=== PATIENT | male | born 1995 | race African-American/Black ===

== ENCOUNTER 2020-02-17 14:41 | Emergency (ER) | payer OTHER, SELFPAY ==
[2020-02-17 14:56] VITALS: BP 113/70; PULSE 83; RESP 14; TEMP 36.7; O2SAT 98; BMI 21.5
--- NOTE | 2020-02-17 15:17 | ED.EXTPRO ---
HPI - Extremity Problem General Chief complaint: Extremity Injury, Upper Stated complaint: Hand pain Time Seen by Provider: 02/17/20 14:50 Source: patient Mode of arrival: ambulatory Limitations: no limitations History of Present Illness HPI Narrative: Patient was on a swing yesterday and when he was getting off he pinned his hand between two metal bars. Now having pain and swelling over the base of the thumb. MD Complaint: extremity pain and extremity swelling Onset (ago): day(s) (1 day ) Pain Consistency: constant Location: right Quality: sharp Radiation: none Relieving factors: cold therapy and immobilization Exacerbating factors: range of motion, exertion and palpation Associated symptoms: denies other symptoms Related Data Allergies Allergy/AdvReac Type Severity Reaction Status Date / Time No Known Allergies Allergy Verified 02/17/20 14:55 Review of Systems Review of Systems: Yes all other systems are reviewed and are negative Constitutional: Constitutional: Reports no additional constitutional complaints, Denies body ache(s), Denies chills, Denies fever(s), Denies headache(s) and Denies weakness Eyes: Eyes: Reports no additional eye complaints and Denies change in vision ENT: Reports system reviewed and no additional complaints, except as documented, Denies dizziness, Denies headache(s), Denies nasal congestion, Denies nasal discharge and Denies neck pain Cardiovascular: Cardiovascular: Reports no additional cardiovascular complaints, Denies chest pain, Denies leg edema and Denies dyspnea Respiratory: Respiratory: Reports no additional respiratory complaints, Denies cough and Denies dyspnea Gastrointestinal: Gastrointestinal: Reports no additional gastrointestinal complaints, Denies abdominal pain, Denies diarrhea, Denies nausea and Denies vomiting Genitourinary: Genitourinary: Denies urinary incontinence Musculoskeletal: Musculoskeletal: Reports no additional musculoskeletal complaints, Denies back pain, Reports arthralgias, Reports joint swelling, Denies neck pain, Denies numbness and Denies tingling Integumentary/Breasts: Skin/Breast: Reports system reviewed and no additional complaints, except as docu and Denies rash Neurologic: Reports system reviewed and no additional complaints, except as documented, Denies Abnormal speech present, Denies dizziness, Denies headache(s), Denies numbness, Denies tingling and Denies weakness FORMERLY [facility], 1928–1983 Past Medical History Attestation statement: The following information was validated with the patient. Source: obtained from family and nursing notes reviewed Medical History Asthma Social History Social History Alcohol intake: never Smoking Status: Former smoker Use of substances other than those prescribed or required for medical reasons: No Advance Directives: No Advance Directives Information Provided: Yes Physical Exam Vital Signs: Vital Signs: Vital Signs Temp Pulse Resp BP Pulse Ox 02/17/20 14:56 98.1 F 83 14 113/70 98 Body Mass Index 21.5 Const: General: cooperative, healthy appearing, comfortable and no acute distress Orientation/consciousness: patient oriented x3 Limitations: no limitations HENMT: Head: Yes normal to inspection Ears: hearing grossly normal bilaterally General nose exam: Normal external nose present Face and sinus: Yes normal facial exam Mouth: Normal oral and palatal mucosa present Throat: Yes posterior oropharynx normal Eyes: General: appearance normal, both eyes and all related structures Pupils: Equal, round and reactive pupils present Neck: Neck: Yes normal visual inspection Chest: Chest palpation & inspection: normal inspection of the chest Resp: Effort & Inspection: normal respiratory effort Auscultation: clear to auscultation bilaterally Cardio: Rate: regular rate Rhythm: regular rhythm Peripheral pulses: Peripheral pulses 2+ throughout GI: Inspection: Yes normal to inspection Palpation (GI): Soft to palpation and nontender Auscultation: normal bowel sounds Back/Spine/Pelvis: Thoracic/Lumbar Spine: thoracic and lumbar spine normal to inspection Skin: General skin exam: no rashes or lesions noted Neuro: General: patient oriented x3, no focal motor deficits and normal sensation to monofilament Cranial nerves: Yes Equal, round and reactive pupils present Cognition (Neuro): normal cognition Speech: No Abnormal speech present Gait exam (Neuro): Normal gait present Motor exam (neuro): 5/5 motor strength present throughout Extrem: General: Yes normal to inspection Right upper extremity: normal to inspection and Extremity exam: right hand Details: normal capillary refill, neuromotor exam normal, neurosensory exam normal, tendon exam normal, tenderness (over the base of the thumb with ecchymosis and swelling. FROM) Location: of the thumb, normal ROM of fingers and ecchymosis; no unusual warmth and no swelling Course Course Course Narrative: Will check imaging. 1550-Xrays negative. Likely sprain vs contusion. Placed in velcro thumb spica splint. Reviewed worrisome signs and symptoms when to return to the emergency department. Comfortable discharge home. MDM - Extremity (Nontraumatic) Imaging Data hand/wrist xray: Attestation: I personally reviewed and interpreted this imaging study as follows: Radiologist's impression: EXAMINATION: CR X-RAY HAND AND WRIST RIGHT CLINICAL INFORMATION: Right hand/wrist pain. COMPARISON: None TECHNIQUE: 4 views of the right hand and wrist are obtained. FINDINGS: There is no acute fracture or dislocation. The joint spaces are unremarkable. The carpal bones are normally aligned. The distal radius and ulna are intact. The soft tissues are unremarkable. XR/XR hand wrist RT IMPRESSION: No acute fracture or significant degenerative changes. Discharge Plan Discharge Clinical Impression: Finger sprain Qualifiers: Encounter type: initial encounter Finger: thumb Sprain of finger site: other site Laterality: right Qualified Code(s): S63.681A - Other sprain of right thumb, initial encounter Patient Disposition: Home, Self-Care Instructions: Finger Sprain (ED) Additional Instructions: Ice, gentle stretching splint for comfort Motrin or tylenol for pain at home as needed Referrals: Physician,None [Primary Care Provider] - 2 days Stand Alone Forms: Work/School Release Interventions: ED Discharge Assessment Last Done: 02/17/20 16:12 Discharge Date/Time: 02/17/20 16:15
== END 2020-02-17 16:15 | disposition home or self-care (01) ==
PROVIDERS: Emergency Provider Emergency Medicine
DX: S63.601A Unspecified sprain of right thumb, initial encounter (principal); W23.1XXA Caught, crushed, jammed, or pinched between stationary objects, initial encounter; Y93.89 Activity, other specified; Y92.830 Public park as the place of occurrence of the external cause; Y99.9 Unspecified external cause status
CPT/HCPCS: 29130; 73110; 73130; 99283; 99284

== ENCOUNTER 2025-04-19 00:41 | Emergency (ER) | payer MEDICAID, SELFPAY ==
[2025-04-19 01:18] VITALS: BP 137/83; PULSE 70; RESP 16; TEMP 36.6; O2SAT 97; BMI 29.0
--- NOTE | 2025-04-19 03:44 | ED.MEDCLEAR ---
HPI - Medical Clearance General Chief complaint: Medical Clearance Stated complaint: medical clearance Time Seen by Provider: 04/19/25 03:39 History of Present Illness ED Provider: Ricky CASTILLO HPI Narrative: The patient is a 29-year-old male presenting to the ED reporting he was feeling unwell on and , but now feels all better and is declining any medical evaluation or treatment. 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 Patient has no medical complaints. Related Information Allergies Allergy/AdvReac Type Severity Reaction Status Date / Time No Known Allergies Allergy Verified 04/19/25 01:18 Review of Systems Review of Systems: Yes all other systems are reviewed and are negative PMFSH Past Medical History Medical History Asthma Social History Social History Alcohol intake: never Advance Directives: No Physical Exam Vital Signs: Vital Signs: Last Vital Signs Temp 97.8 F 04/19/25 01:18 Pulse 70 04/19/25 01:18 Resp 16 04/19/25 01:18 BP 137/83 04/19/25 01:18 Pulse Ox 97 04/19/25 01:18 O2 Del Method Room Air 04/19/25 01:18 BMI result Body Mass Index 29.0 CONSTITUTIONAL: The patient appears non-toxic, well nourished and in no acute distress. Vital signs as documented. HEAD: Atraumatic, normocephalic. EYES: EOMs grossly intact, pupils equal, conjunctiva clear, no exudate. ENT: Nares patent, no discharge. Airway patent, no audible stridor, visible mucosa is pink and moist without noted lesions. NECK: trachea is midline, no obvious masses or gross abnormalities. CHEST: Symmetric movement, normal appearance. LUNGS: Non-labored work of breathing. CARDIAC: No evidence of hypoperfusion. ABDOMEN: Nondistended, no obvious injury. : Deferred. EXTREMITIES: Moves all extremities spontaneously without reported pain. No obvious injury or deformity noted. NEURO: Alert and oriented x3, CN II-XII appear grossly intact. Cerebellar Functioning grossly intact. Speech clear and appropriate. SKIN: Warm, dry, color appropriate. No rashes or lesions noted. Medical Decision Making Medical Decision Making MDM Narrative: 3:51 AM 04/19/2025 (Geronimo CASTILLO): The patient is a 29-year-old male presenting to the ED reporting he was feeling unwell on and , but now feels all better and is declining any medical evaluation or treatment. 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 Patient has no complaints. Patient is non-toxic appearing. A work note will be provided along with information for establishing a primary care provider to manage non-emergent needs in the future.. Discharge Plan Discharge Clinical Impression: Encounter for examination and observation for unspecified reason Patient Disposition: Home, Self-Care Additional Instructions: Return to work notes are not an appropriate use of the emergency department. Call the [facility] at [phone] to establish a new primary care physician. While waiting to establish your new primary care physician, you can call our [facility] at [phone] for non-emergency needs. Stand Alone Forms: Work/School Release Print Language: Ug[place]an
--- OUTSIDE RECORDS SUMMARY | 2025-04-19 04:03 | XMS_ITS | Clinical Summary ---
Author Organization [employer] Address [address] [place] [address] Care Team Providers Care Financial Services Assistant Name Role Phone Unavailable Primary Care Provider Unavailabl e Social History Tobacco Use Types Packs/Day Years Used Date Smoking Tobacco: Never Assessed Sex and Gender Information Value Date Recorded Sex Assigned at Not on file Legal Sex Male 2:43 AM EDT Gender Identity Not on file Sexual Orientation Not on file Plan of Treatment Health Maintenance Due Date Last Done Comments Depression Screening 1995 HIV Screening 1995 SDOH Screening 1995 Disability Screening 1995 Alcohol/Substance Use Screening 2007 Tobacco Screening 2007 Family Planning (PISQ) 11/26/2010 HPV Vaccines (1 - Male 3-dos e series) 11/26/2010 Hepatitis C Screening 11/26/2013 DTaP/Tdap/Td Vaccines (1 - Tdap) 11/26/2014 Hepatitis B Vaccines (1 of 3 - 19+ 3-dose series) 11/26/2014 COVID-19 Vaccine (1 - 2024-2 6 season) 2024 Influenza Vaccine (#1) 2024 Zoster Vaccines (1 of 2) 11/26/2045 RSV Patients and Pa tients Aged 60 years or older (1 - 1-dose 75+ series) 11/26/2070 HIB Vaccines Aged Out No longer eligi ble based on patient's age to complete this topic Hepatitis A Vaccines Aged Out No long er eligible based on patient's age to complete this topic IPV Vaccines Aged Out No longer eligi ble based on patient's age to complete this topic Meningococcal B Vaccine Aged Out No l onger eligible based on patient's age to complete this topic Meningococcal Vaccine Aged Out No sae mikael eligible based on patient's age to complete this topic Pneumococcal Vaccine: Pediat rics (0 to 5 Years) and At-Risk Patients (6 to 49) Years Aged Out No longer eligible b ased on patient's age to complete this topic RSV under 20 months Aged Out No longe r eligible based on patient's age to complete this topic Rotavirus Vaccines Aged Out No longer eligible based on patient's age to complete this topic
[2025-04-19 04:21] VITALS: BP 137/83; PULSE 70; RESP 16; TEMP 36.6; O2SAT 97
== END 2025-04-19 04:21 | disposition home or self-care (01) ==
PROVIDERS: Emergency Provider Emergency Medicine
DX: J45.909 Unspecified asthma, uncomplicated (principal); Z04.9 Encounter for examination and observation for unspecified reason
CPT/HCPCS: 99283